=== PATIENT | female | born 1975 | race Caucasian/White ===

== ENCOUNTER 2016-09-02 08:17 | Outpatient (CLI) | payer MEDICAID ==
[2016-09-02 10:21] LABS: BASOPHILS % (AUTO) 0.4 %; EOSINOPHILS # (AUTO) 0.3 10^3/uL (0.0-0.7); HGB - HEMOGLOBIN 11.5 g/dL (12.0-16.0); LYMPHOCYTES # (AUTO) 2.1 10^3/uL (1.5-3.5); LYMPHOCYTES % (AUTO) 20.6 %; MEAN CORPUSCULAR HGB CONC 34.8 g/dL (32.0-36.0); MEAN PLATELET VOLUME 8.5 fL (7.9-10.8); MONOCYTES # (AUTO) 0.8 10^3/uL (0.0-1.0); MONOCYTES % (AUTO) 7.4 %; NEUTROPHILS # (AUTO) 7.2 10^3/uL (1.5-6.6); NEUTROPHILS % (AUTO) 68.6 %; RED BLOOD COUNT 3.71 10^6/uL (4.20-5.40); RED CELL DISTRIBUTION WIDTH 12.8 % (12.0-15.0); UNCORRECTED WHITE BLOOD COUNT 10.4 x10^3/uL; WHITE BLOOD COUNT 10.4 x10^3/uL (4.8-10.8)
[2016-09-02 10:31] LABS: ALBUMIN/GLOBULIN RATIO 1.1 (1.0-2.2); BILIRUBIN,TOTAL 0.5 mg/dL (0.2-1.0); CALCIUM 8.7 mg/dL (8.5-10.3); CREATININE 0.3 mg/dL (0.4-1.0); POTASSIUM 3.9 mmol/L (3.5-5.0); TOTAL PROTEIN 6.4 g/dL (6.7-8.2)
[2016-09-02 10:38] LABS: HEMOGLOBIN A1C 0.35 g/dL
[2016-09-02 11:01] LABS: FOLATE 20.19 ng/mL (5.90 - >24.8)
[2016-09-02 11:08] LABS: THYROID STIMULATING HORMONE 3.53 uIU/mL (0.34-5.60)
[2016-09-07 07:50] LABS: MISC SENDOUT TEST NAME PH LAB1033 HISTAMINE
== END 2016-09-02 08:18 | disposition home or self-care (01) ==
LOC: LAB.F 08:17 → LAB 08:18
PROVIDERS: ATTEND Nurse Practitioner Psychiatric/Mental Health
DX: F31.81 Bipolar II disorder (principal); E55.9 Vitamin D deficiency, unspecified; F41.1 Generalized anxiety disorder; E56.9 Vitamin deficiency, unspecified; F41.0 Panic disorder [episodic paroxysmal anxiety]; R53.83 Other fatigue
CPT/HCPCS: 36415; 80053; 81599; 82306; 82390; 82525; 82533; 82607; 82627; 82746; 83036; 83088; 83090; 83735; 84439; 84443; 84481; 84630; 85025; 86376; 86800

== ENCOUNTER 2016-11-14 11:17 | Outpatient (CLI) | payer MEDICAID ==
[2016-11-14 13:48] LABS: BILIRUBIN,TOTAL < 0.2 mg/dL (0.2-1.0); BUN - BLOOD UREA NITROGEN 8 mg/dL (6-20); CARBON DIOXIDE - CO2 20 mmol/L (21-32); CHLORIDE 104 mmol/L (101-111); CREATININE 0.4 mg/dL (0.4-1.0); GFR - MDRD 178 (>89); GLUCOSE 124 mg/dL (70-100); POTASSIUM 3.5 mmol/L (3.5-5.0); SODIUM 132 mmol/L (135-145); TOTAL PROTEIN 6.1 g/dL (6.7-8.2)
[2016-11-14 14:11] LABS: BASOPHILS % (AUTO) 0.3 %; EOSINOPHILS # (AUTO) 0.3 10^3/uL (0.0-0.7); EOSINOPHILS % (AUTO) 2.5 %; HCT - HEMATOCRIT 34.3 % (37.0-47.0); HGB - HEMOGLOBIN 11.8 g/dL (12.0-16.0); LYMPHOCYTES # (AUTO) 2.2 10^3/uL (1.5-3.5); LYMPHOCYTES % (AUTO) 17.2 %; MEAN CORPUSCULAR HGB CONC 34.4 g/dL (32.0-36.0); MEAN PLATELET VOLUME 8.1 fL (7.9-10.8); RED BLOOD COUNT 3.81 10^6/uL (4.20-5.40); RED CELL DISTRIBUTION WIDTH 12.9 % (12.0-15.0); UNCORRECTED WHITE BLOOD COUNT 12.5 x10^3/uL; WHITE BLOOD COUNT 12.5 x10^3/uL (4.8-10.8)
[2016-11-14 15:21] LABS: FOLATE > 49.60 ng/mL (5.90 - >24.8)
[2016-11-15 13:31] LABS: HOMOCYSTEINE 4.8 umol/L (<10.4)
[2016-11-17 14:02] LABS: TEST RESULT REPORT (())
[2016-11-18 19:22] LABS: TEST RESULT REPORT (())
== END 2016-11-14 11:18 | disposition home or self-care (01) ==
LOC: LAB 11:17
PROVIDERS: ATTEND Obstetrics & Gynecology
DX: O09.521 Supervision of elderly multigravida, first trimester (principal); F31.81 Bipolar II disorder; E56.9 Vitamin deficiency, unspecified; E55.9 Vitamin D deficiency, unspecified; R53.83 Other fatigue
CPT/HCPCS: 36415; 80053; 81599; 82306; 82542; 82607; 82746; 82950; 83088; 83090; 84439; 84481; 84482; 85025

== ENCOUNTER 2016-11-15 20:36 | Outpatient (CLI) | payer MEDICAID ==
[2016-11-15 21:55] LABS: BILIRUBIN,URINE NEGATIVE (NEGATIVE)
[2016-11-15 22:22] LABS: UR CULTURE IF IND NOT INDICATED; WBC,URINE 0-3 /HPF (0-5)
[2016-11-15 22:28] VITALS: BP 129/68
== END 2016-11-15 22:10 | disposition home or self-care (01) ==
LOC: OB 20:36 → WFO 20:36
PROVIDERS: ATTEND Obstetrics & Gynecology
DX: O99.89 Other specified diseases and conditions complicating pregnancy, childbirth and the puerperium (principal); R10.9 Unspecified abdominal pain; Z3A.29 29 weeks gestation of pregnancy
CPT/HCPCS: 81001; 87086; 99212

== ENCOUNTER 2017-01-24 12:05 | Emergency (ER) | payer MEDICAID ==
--- NOTE | 2017-01-24 13:55 | ED Physician Documentation ---
PD HPI HEADACHE - Stated complaint Stated Complaint: CL[place]ORD - Chief complaint Chief Complaint: Neuro - History obtained from History obtained from: Patient - History of Present Illness Timing - onset: How many weeks ago (several) Timing - onset during: Light activity Timing - duration: Weeks Timing - details: Gradual onset, Still present (worse as is out of pain meds she has had regularly), Waxing and waning Worst headache ever?: No: Worst headache ever? Location: Global Quality: Throbbing, Aching Associated symptoms: No: Fever, Stiff neck, Nausea, Vomiting, Weakness, Numbness , Syncope, Seizure, Eye pain, Vision changes, Other Improved by: Dark room Worsened by: Light, Noise, Moving Contributing factors: No: Anticoagulated, Hypertension (BP was mildly high during last month of .), Recent illness Similar symptoms before: No diagnosis (presumed migrainous.) Review of Systems Constitutional: denies: Fever, Chills Nose: denies: Rhinorrhea / runny nose, Congestion Throat: denies: Sore throat Cardiac: denies: Chest pain / pressure Respiratory: denies: Dyspnea, Cough, Hemoptysis, Wheezing, Reviewed and negative , Other GI: reports: Nausea : reports: Dysuria, Frequency Skin: denies: Rash, Lesions Musculoskeletal: denies: Neck pain, Back pain, Extremity swelling Neurologic: reports: Generalized weakness. denies: Focal weakness, Numbness, Difficulty speaking, Near syncope Endocrine: reports: Polydypsia Immunocompromised: denies: Immunocompromised PD PAST MEDICAL HISTORY - Past Medical History Psych: Depression - Past Surgical History Past Surgical History: Yes Ortho: Other - Present Medications Home Medications: Ambulatory Orders Medication Instructions Recorded Confirmed Doxylamine [Unisom] 25 mg PO HS 01/22/13 01/22/13 Sertraline [Zoloft] 100 mg PO DAILY 01/22/13 01/22/13 Dexamethasone [Decadron] 4 mg PO DAILY #5 tablet 01/24/17 oxyCODONE [Roxicodone] 5 mg PO Q4-6H PRN #30 tablet 01/24/17 - Allergies Allergies/Adverse Reactions: Allergies Allergy/AdvReac Type Severity Reaction Status Date / Time acetaminophen [From Vicodin] AdvReac Intermediate Nausea Verified 01/24/17 12:27 hydrocodone bitartrate * AdvReac Intermediate Nausea Verified 01/24/17 12:27 [From Vicodin] - Social History Does the pt smoke?: No Smoking Status: Never smoker Does the pt drink ETOH?: No Does the pt have substance abuse?: No - Immunizations Immunizations are current?: No Immunizations: TDAP >10years/unknown PD ED PE NORMAL - Vitals Vital signs reviewed: Yes - General General: Alert and oriented X 3, Well developed/nourished, Other (uncomfortable) - HEENT HEENT: Atraumatic, PERRL (light sensitive), Pharynx benign - Neck Neck: Supple, no meningeal sign, No adenopathy - Cardiac Cardiac: RRR, No murmur - Respiratory Respiratory: Clear bilaterally - Back Back: No CVA TTP - Derm Derm: Normal color, Warm and dry, No rash - Extremities Extremities: No tenderness to palpate, No edema, No calf tenderness / cord - Neuro Neuro: Alert and oriented X 3, orthotist or prosthetist 2-12 intact, No motor deficit, No sensory deficit, Normal speech, Other - Psych Psych: Normal mood, Normal affect Results - Vitals Vitals: Oxygen O2 Source Room air - Labs Labs: Laboratory Tests 01/24/17 01/24/17 01/24/17 13:30 15:25 15:25 WBC 10.9 H RBC 4.02 L Hgb 12.3 Hct 36.6 L MCV 91.0 MCH 30.6 MCHC 33.6 RDW 13.0 Plt Count 268 MPV 7.4 L Neut # 6.8 H Lymph # 2.8 [place] # 0.8 Eos # 0.4 Baso # 0.0 Absolute Nucleated RBC 0.00 Nucleated RBC % 0.0 ESR 46 H Urine Color YELLOW Urine Clarity CLEAR Urine pH 6.5 Ur Specific [place] <=1.005 Urine Protein NEGATIVE Urine Glucose (UA) NEGATIVE Urine Ketones NEGATIVE Urine Occult Blood SMALL H Urine Nitrite NEGATIVE Urine Bilirubin NEGATIVE Urine Urobilinogen 0.2 (NORMAL) Ur Leukocyte Esterase NEGATIVE Urine RBC 0-5 Urine WBC 0-3 Ur Squamous Epith Cells FEW Squamous Urine Bacteria None Seen Ur Microscopic Review INDICATED Urine Culture Comments NOT INDICATED PD MEDICAL DECISION MAKING - ED course Complexity details: reviewed results, re-evaluated patient (improved with pain meds and mostly meds for migraine cocktail. ), considered differential (seems vascular like migraine. Has some fluctuance of BP reading here and will give some pain meds to her due to pain. Also discussed the head CT scan. With gradual onset wax and wane for weeks, it does not seem eeding CT imaging here. ) , d/w patient Departure - Departure Disposition: 01 Home, Self Care Clinical Impression: Headache Qualifiers: Headache type: unspecified Headache chronicity pattern: acute headache Intractability: intractable Qualified Code(s): R51 - Headache Condition: Stable Record reviewed to determine appropriate education?: Yes Instructions: ED Cephalgia Unspecified Follow-Up: Ness Christine MD [Primary Care Provider] - Prescriptions: Dexamethasone [Decadron] 4 mg PO DAILY #5 tablet oxyCODONE [Roxicodone] 5 mg PO Q4-6H PRN #30 tablet PRN Reason: Headache Comments: Drink lots of fluids. Use Advil 2-3 times daily. Also add dexamethasone steroid daily for 5 more days. Oxycodone every 4-6 hours if needed for headache. Try to decrease the frequency of it as higher amounts of pain medicine can paradoxically increase headache 2. Follow-up with your primary care in the next 2-3 days if not improved. Discharge Date/Time: 01/24/17 17:55
[2017-01-24 14:38] LABS: BILIRUBIN,URINE NEGATIVE (NEGATIVE); PH,URINE 6.5 PH (5.0-7.5)
[2017-01-24 14:40] LABS: UA w/ MICROSCOPIC CHARGE YES
[2017-01-24] MEDS ORDERED: SODIUM CHLORIDE 0.9% 1,000 ML IV ONE (14:42)
[2017-01-24] MEDS ORDERED: METOCLOPRAMIDE 10 MG/2 ML VIAL IVP STA (14:42)
[2017-01-24] MEDS ORDERED: KETOROLAC 60 MG/2 ML VIAL IVP STA (14:42)
[2017-01-24] MEDS ORDERED: diphenhydrAMINE INJ 50 MG/ML VIAL IVP STA (14:42)
[2017-01-24] MEDS ORDERED: DEXAMETHASONE 10 MG/ML VIAL IVP STA (14:42)
[2017-01-24] MEDS ORDERED: HYDROmorphone 1 MG/ML CARPUJECT IVP STA ×2 (14:43→16:47)
[2017-01-24 14:52] LABS: WBC,URINE 0-3 /HPF (0-5)
[2017-01-24 14:53] LABS: UR CULTURE IF IND NOT INDICATED
[2017-01-24] MEDS ORDERED: METOCLOPRAMIDE 10 MG/2 ML VIAL ONE (15:10)
[2017-01-24] MEDS ORDERED: diphenhydrAMINE INJ 50 MG/ML VIAL ONE (15:11)
[2017-01-24] MEDS ORDERED: DEXAMETHASONE 10 MG/ML VIAL ONE (15:11)
[2017-01-24] MEDS ORDERED: HYDROmorphone 1 MG/ML CARPUJECT ONE ×2 (15:11→17:16)
[2017-01-24] MEDS ORDERED: SODIUM CHLORIDE FLUSH 0.9% 10 ML SYRINGE IVP ONE ×2 (15:12→17:16)
[2017-01-24] MEDS ORDERED: KETOROLAC 30 MG/ML VIAL ONE (15:12)
[2017-01-24 15:45] LABS: BASOPHILS % (AUTO) 0.3 %; EOSINOPHILS # (AUTO) 0.4 10^3/uL (0.0-0.7); EOSINOPHILS % (AUTO) 3.8 %; HCT - HEMATOCRIT 36.6 % (37.0-47.0); HGB - HEMOGLOBIN 12.3 g/dL (12.0-16.0); LYMPHOCYTES # (AUTO) 2.8 10^3/uL (1.5-3.5); LYMPHOCYTES % (AUTO) 25.9 %; MEAN CORPUSCULAR HEMOGLOBIN 30.6 pg (27.0-31.0); MEAN CORPUSCULAR HGB CONC 33.6 g/dL (32.0-36.0); MEAN PLATELET VOLUME 7.4 fL (7.9-10.8); MONOCYTES # (AUTO) 0.8 10^3/uL (0.0-1.0); MONOCYTES % (AUTO) 7.6 %; NEUTROPHILS # (AUTO) 6.8 10^3/uL (1.5-6.6); NEUTROPHILS % (AUTO) 62.4 %; RED BLOOD COUNT 4.02 10^6/uL (4.20-5.40); UNCORRECTED WHITE BLOOD COUNT 10.9 x10^3/uL; WHITE BLOOD COUNT 10.9 x10^3/uL (4.8-10.8)
[2017-01-24 17:17] VITALS: BP 130/82
== END 2017-01-24 17:55 | disposition home or self-care (01) ==
LOC: ED 12:05
DX: R51 Headache (principal)
CPT/HCPCS: 36415; 81001; 85025; 85651; 96374; 96375; 96376; 99284; J1170; 81003; 87086

== ENCOUNTER 2017-02-06 16:55 | Emergency (ER) | payer MEDICAID ==
[2017-02-06 18:22] LABS: BASOPHILS # (AUTO) 0.1 10^3/uL (0.0-0.1); BASOPHILS % (AUTO) 0.7 %; EOSINOPHILS # (AUTO) 0.5 10^3/uL (0.0-0.7); EOSINOPHILS % (AUTO) 4.6 %; HCT - HEMATOCRIT 41.4 % (37.0-47.0); HGB - HEMOGLOBIN 13.8 g/dL (12.0-16.0); LYMPHOCYTES # (AUTO) 3.3 10^3/uL (1.5-3.5); LYMPHOCYTES % (AUTO) 32.5 %; MEAN CORPUSCULAR HEMOGLOBIN 30.4 pg (27.0-31.0); MEAN CORPUSCULAR HGB CONC 33.4 g/dL (32.0-36.0); MEAN CORPUSCULAR VOLUME 91.1 fL (81.0-99.0); MEAN PLATELET VOLUME 7.4 fL (7.9-10.8); MONOCYTES # (AUTO) 0.8 10^3/uL (0.0-1.0); MONOCYTES % (AUTO) 8.1 %; NEUTROPHILS # (AUTO) 5.5 10^3/uL (1.5-6.6); NEUTROPHILS % (AUTO) 54.1 %; RED BLOOD COUNT 4.55 10^6/uL (4.20-5.40); RED CELL DISTRIBUTION WIDTH 12.7 % (12.0-15.0); UNCORRECTED WHITE BLOOD COUNT 10.3 x10^3/uL; WHITE BLOOD COUNT 10.3 x10^3/uL (4.8-10.8)
[2017-02-06 18:32] LABS: ALBUMIN/GLOBULIN RATIO 1.4 (1.0-2.2); BILIRUBIN,TOTAL 0.5 mg/dL (0.2-1.0); CALCIUM 9.6 mg/dL (8.5-10.3); CREATININE 0.7 mg/dL (0.4-1.0); POTASSIUM 3.9 mmol/L (3.5-5.0); TOTAL PROTEIN 7.2 g/dL (6.7-8.2)
--- NOTE | 2017-02-06 19:44 | ED Physician Documentation ---
PD HPI ABD PAIN - Stated complaint Stated Complaint: FEMALE - Chief complaint Chief Complaint: Abd Pain - History obtained from History obtained from: Patient - History of Present Illness Timing - onset: How many days ago (she has had pain in umbilical area for days and feels fullness/distension of abdomen, which is new for her.) Timing - details: Gradual onset, Waxing and waning Quality: Cramping, Fullness/distended Location: Periumbilical Radiation: No: Left flank, Right flank Worsened by: Eating, Palpation Associated symptoms: Nausea. No: Fever, Vomiting, Diarrhea, Dysuria Recently seen: Other (recently post with headache. Had umbilical hernia during without tenderness. It is feeling tender the past week or so.) Review of Systems Constitutional: denies: Fever, Chills Nose: denies: Rhinorrhea / runny nose, Congestion Throat: denies: Sore throat Respiratory: denies: Cough GI: reports: Abdominal Pain, Abdominal Swelling, Nausea. denies: Vomiting, Constipation, Diarrhea : denies: Dysuria, Frequency Neurologic: reports: Headache. denies: Focal weakness, Numbness, Altered mental status, Head injury PD PAST MEDICAL HISTORY - Past Medical History Cardiovascular: None Respiratory: None Neuro: None Endocrine/Autoimmune: None Psych: Depression - Past Surgical History Past Surgical History: Yes Ortho: Other - Present Medications Home Medications: Ambulatory Orders Medication Instructions Recorded Confirmed Sertraline [Zoloft] 100 mg PO DAILY 01/22/13 01/22/13 Dexamethasone [Decadron] 4 mg PO DAILY #5 tablet 02/06/17 Naproxen 375 mg PO BID #20 tablet 02/06/17 Oxycodone HCl/Acetaminophen 1 each PO Q6H PRN #15 tablet 02/06/17 [Percocet 5-325 mg Tablet] lamoTRIgine [LaMICtal] 100 mg PO DAILY 02/06/17 02/06/17 - Allergies Allergies/Adverse Reactions: Allergies Allergy/AdvReac Type Severity Reaction Status Date / Time acetaminophen [From Vicodin] AdvReac Intermediate Nausea Verified 01/24/17 12:27 hydrocodone bitartrate * AdvReac Intermediate Nausea Verified 01/24/17 12:27 [From Vicodin] - Social History Does the pt smoke?: No Smoking Status: Never smoker Does the pt drink ETOH?: No Does the pt have substance abuse?: No - Immunizations Immunizations are current?: No Immunizations: TDAP >10years/unknown PD ED PE NORMAL - Vitals Vital signs reviewed: Yes - General General: Alert and oriented X 3, No acute distress, Well developed/nourished - Neck Neck: Supple, no meningeal sign, No adenopathy - Cardiac Cardiac: RRR, No murmur - Respiratory Respiratory: Clear bilaterally - Abdomen Abdomen: Normal bowel sounds, Soft, No organomegaly, Other (mild distension with hyperactive BS. Not firm and no percussion tender. ) - Female Female : Deferred - Rectal Rectal: Deferred - Back Back: No CVA TTP - Derm Derm: Normal color Results - Vitals Vitals: Vital Signs - 24 hr 02/06/17 02/06/17 02/06/17 17:01 20:50 23:06 Temperature 36.7 C Heart Rate 95 76 73 Respiratory 16 14 17 Rate Blood Pressure 126/85 H 120/64 120/76 O2 Saturation 98 96 99 Oxygen O2 Source Room air - Labs Labs: Laboratory Tests 02/06/17 02/06/17 02/06/17 18:12 18:12 19:36 WBC 10.3 RBC 4.55 Hgb 13.8 Hct 41.4 MCV 91.1 MCH 30.4 MCHC 33.4 RDW 12.7 Plt Count 278 MPV 7.4 L Neut # 5.5 Lymph # 3.3 [place] # 0.8 Eos # 0.5 Baso # 0.1 Absolute Nucleated RBC 0.01 Nucleated RBC % 0.0 Sodium 135 Potassium 3.9 Chloride 100 L Carbon Dioxide 24 Anion Gap 11.0 BUN 16 Creatinine 0.7 Estimated GFR (MDRD) 93 Glucose 114 H Calcium 9.6 Total Bilirubin 0.5 AST 24 ALT 24 Alkaline Phosphatase 66 Total Protein 7.2 Albumin 4.2 Globulin 3.0 Albumin/Globulin Ratio 1.4 Lipase 25 Urine Color YELLOW Urine Clarity CLEAR Urine pH 6.0 Ur Specific [place] >=1.030 H Urine Protein NEGATIVE Urine Glucose (UA) NEGATIVE Urine Ketones NEGATIVE Urine Occult Blood TRACE-LYSE Urine Nitrite NEGATIVE Urine Bilirubin NEGATIVE Urine Urobilinogen 0.2 (NORMAL) Ur Leukocyte Esterase NEGATIVE Ur Microscopic Review NOT INDICATED Urine Culture Comments INDICATED - Rads (name of study) abd CT Radiology: Prelim report reviewed (fat containing umbilical hernia. No obsctruction. ) PD MEDICAL DECISION MAKING - ED course Complexity details: reviewed results, considered differential, d/w patient, d/w client insights consultant (Rey) Departure - Departure Disposition: 01 Home, Self Care Clinical Impression: Abdominal pain Qualifiers: Abdominal location: periumbilical Qualified Code(s): R10.33 - Periumbilical pain Umbilical hernia Qualifiers: Obstruction and gangrene presence: without obstruction or gangrene Qualified Code(s): K42.9 - Umbilical hernia without obstruction or gangrene Headache Qualifiers: Headache type: unspecified Headache chronicity pattern: acute headache Intractability: intractable Qualified Code(s): R51 - Headache Condition: Stable Record reviewed to determine appropriate education?: Yes Instructions: Hernia, ED Hernia Inguinal Follow-Up: Orlando Atkins MD [Provider Admit Priv/Credential] - Ness Christine MD [Primary Care Provider] - Prescriptions: Dexamethasone [Decadron] 4 mg PO DAILY #5 tablet Naproxen 375 mg PO BID #20 tablet Oxycodone HCl/Acetaminophen [Percocet 5-325 mg Tablet] 1 each PO Q6H PRN #15 tablet PRN Reason: Pain Comments: Stay well hydrated. Naproxen twice daily for a week. ALso Decadron daily for 5 days for inflammation and to help with headache too. Take dose Miralax daily to keep stool soft to help with the hernia. Add Tylenol or Percocet for pains as needed. Call surgery office for appt to discuss treatment options on the hernia. The information sheet refers to Inguinal Hernias but applies to Umbilical Hernias as well generally. Discharge Date/Time: 02/06/17 23:07
[2017-02-06 19:49] LABS: BILIRUBIN,URINE NEGATIVE (NEGATIVE)
[2017-02-06 19:52] LABS: UA CHARGE (STRIP ONLY) YES
[2017-02-06] MEDS ORDERED: METOCLOPRAMIDE 10 MG/2 ML VIAL IVP STA ×2 (19:58→22:39)
[2017-02-06] MEDS ORDERED: SODIUM CHLORIDE 0.9% 1,000 ML IV ONE (19:58)
[2017-02-06] MEDS ORDERED: KETOROLAC 60 MG/2 ML VIAL IVP STA (19:58)
[2017-02-06] MEDS ORDERED: HYDROmorphone 1 MG/ML CARPUJECT IVP STA ×2 (19:59→20:57)
[2017-02-06] MEDS ORDERED: KETOROLAC 30 MG/ML VIAL ONE (20:07)
[2017-02-06] MEDS ORDERED: HYDROmorphone 1 MG/ML SYRINGE ONE ×2 (20:07→21:12)
[2017-02-06] MEDS ORDERED: METOCLOPRAMIDE 10 MG/2 ML VIAL ONE ×3 (20:07→22:51)
[2017-02-06] MEDS ORDERED: SODIUM CHLORIDE FLUSH 0.9% 10 ML SYRINGE IVP ONE (20:08)
[2017-02-06] MEDS ORDERED: IOPAMIDOL-300 100 ML VIAL ONE (20:21)
[2017-02-06 20:28] LABS: UR CULTURE IF IND INDICATED
[2017-02-06] MEDS ORDERED: IOPAMIDOL-300 100 ML VIAL IVP ONE (20:47)
--- NOTE | 2017-02-06 21:17 | CT Preliminary Report ---
Exam: CT Abdomen/Pelvis W/ IMPRESSION: 1. Fat-containing umbilical hernia. 2. No other significant acute abnormality demonstrated. [facility] SITE ID: [id number]
--- NOTE | 2017-02-06 21:19 | CT Report ---
EXAM: CT ABDOMEN AND PELVIS EXAM DATE: 02/06/2017 08:36 PM. CLINICAL HISTORY: Mid abd pain and distension for 2 days. COMPARISONS: None. TECHNIQUE: Routine helical CT imaging was performed through the abdomen and pelvis. IV contrast: 100 cc Isovue-300 IV. Enteric contrast: No. Reconstructions: Coronal and sagittal. In accordance with CT protocol optimization, one or more of the following dose reduction techniques w ere utilized for this exam: automated exposure control, adjustment of mA and/or KV based on patient s ize, or use of iterative reconstructive technique. FINDINGS: Lung Bases: Unremarkable. Liver: Normal. No masses. Gallbladder/Bile Ducts: Unremarkable. Spleen: Normal. Pancreas: Normal. Adrenal Glands: Normal. Kidneys: Normal. No masses or hydronephrosis. Peritoneal Cavity/Bowel: There is a fat-containing umbilical hernia. The neck of the hernia measures 0.7 x 1.5 cm. No dilated bowel or findings of mechanical bowel obstruction. The appendix appears norm al. There is no abnormal fluid or gas collection. Pelvic Organs: Uterus is anteverted. There is heterogeneous enhancement of the uterus. Vasculature: No aneurysms or other significant abnormality. Bones: No significant abnormality. Other: None. IMPRESSION: 1. Fat-containing umbilical hernia. 2. No other significant acute abnormality demonstrated. [facility] Referring Provider Line: [phone] SITE ID: [id number]
[2017-02-06] MEDS ORDERED: oxyCODONE/ACET 5/325 Prepack 4 PO STA (22:09)
[2017-02-06] MEDS ORDERED: DEXAMETHASONE 10 MG/ML VIAL IVP STA (22:09)
[2017-02-06] MEDS ORDERED: oxyCODONE/ACET 5/325 Prepack 4 PO ONE (22:26)
[2017-02-06] MEDS ORDERED: DEXAMETHASONE 10 MG/ML VIAL ONE (22:26)
[2017-02-06 23:07] VITALS: BP 120/76
== END 2017-02-06 23:07 | disposition home or self-care (01) ==
LOC: ED 16:55
DX: K42.9 Umbilical hernia without obstruction or gangrene (principal); R51 Headache
CPT/HCPCS: 36415; 74177; 80053; 81003; 83690; 85025; 87086; 96361; 96374; 96375; 96376; 99283; 99284; J1170; Q9967; 81001

== ENCOUNTER 2019-11-10 13:12 | Outpatient (CLI) | payer MEDICAID | END 2019-11-10 13:13 | disposition home or self-care (01) | LOC: LAB.S 13:12 | PROVIDERS: ATTEND Family Medicine | DX: M79.10 Myalgia, unspecified site (principal); Z20.828 Contact with and (suspected) exposure to other viral communicable diseases ==

== ENCOUNTER 2020-03-21 12:03 | Outpatient (CLI) | payer MEDICAID ==
[2020-03-24 03:27] LABS: PROGESTERONE 8.5 ng/mL
== END 2020-03-21 12:04 | disposition home or self-care (01) ==
LOC: LAB.S 12:03
PROVIDERS: ATTEND Naturopath
DX: N92.1 Excessive and frequent menstruation with irregular cycle (principal); R19.7 Diarrhea, unspecified; R10.30 Lower abdominal pain, unspecified; R45.1 Restlessness and agitation
CPT/HCPCS: 36415; 81599; 82670; 82784; 83001; 83516; 84144

== ENCOUNTER 2020-09-29 12:33 | Outpatient (CLI) | payer MEDICAID ==
[2020-09-29 15:27] LABS: BASOPHILS % (AUTO) 0.4 %; EOSINOPHILS # (AUTO) 0.3 10^3/uL (0.0-0.7); EOSINOPHILS % (AUTO) 3.5 %; HCT - HEMATOCRIT 38.5 % (37.0-47.0); HGB - HEMOGLOBIN 12.6 g/dL (12.0-16.0); LYMPHOCYTES # (AUTO) 2.8 10^3/uL (1.5-3.5); LYMPHOCYTES % (AUTO) 30.4 %; MEAN CORPUSCULAR HEMOGLOBIN 30.4 pg (27.0-31.0); MEAN CORPUSCULAR HGB CONC 32.7 g/dL (32.0-36.0); MEAN CORPUSCULAR VOLUME 92.8 fL (81.0-99.0); MEAN PLATELET VOLUME 9.9 fL (7.9-10.8); MONOCYTES # (AUTO) 0.8 10^3/uL (0.0-1.0); MONOCYTES % (AUTO) 8.6 %; NEUTROPHILS # (AUTO) 5.3 10^3/uL (1.5-6.6); NEUTROPHILS % (AUTO) 56.8 %; PLT - PLATELET COUNT 249 10^3/uL (130-450); RED BLOOD COUNT 4.15 10^6/uL (4.20-5.40); RED CELL DISTRIBUTION WIDTH 11.9 % (12.0-15.0); WHITE BLOOD COUNT 9.3 x10^3/uL (4.8-10.8)
== END 2020-09-29 12:34 | disposition home or self-care (01) ==
LOC: LAB.S 12:33
PROVIDERS: ATTEND Naturopath
DX: N92.5 Other specified irregular menstruation (principal); R61 Generalized hyperhidrosis; R53.83 Other fatigue
CPT/HCPCS: 36415; 82670; 83001; 85025

== ENCOUNTER 2020-10-31 08:00 | Outpatient (CLI) | payer MEDICAID ==
--- NOTE | 2020-10-31 14:23 | XRAY Report ---
PROCEDURE: Thoracic Spine 3 View INDICATIONS: THORACIC BACK PAIN AND INJURY TECHNIQUE: 3 views of the thoracic spine were acquired. COMPARISON: None. FINDINGS: Bones: No fractures or dislocations. No suspicious bony lesions. 12 pairs of ribs are noted, and a ppear intact where visualized. Soft tissues: No paravertebral stripe thickening. IMPRESSION: No evidence acute bony abnormality of the thoracic spine. Reviewed by: Deondre Brambila MD on 10/31/2020 1:21 PM [facility] Approved by: Deondre Brambila MD on 10/31/2020 1:21 PM [facility] Station ID: [id number]
== END 2020-10-31 23:59 | disposition home or self-care (01) ==
LOC: DI.S 08:00
PROVIDERS: ATTEND Emergency Medicine
DX: M54.6 Pain in thoracic spine (principal)

== ENCOUNTER 2021-04-26 15:45 | Outpatient (CLI) | payer MEDICAID | END 2021-04-26 23:59 | disposition home or self-care (01) | LOC: LAB.S 15:45 | PROVIDERS: ATTEND Emergency Medicine | DX: J06.9 Acute upper respiratory infection, unspecified (principal); Z20.822 Contact with and (suspected) exposure to COVID-19 ==

== ENCOUNTER 2021-09-22 09:10 | Outpatient (CLI) | payer MEDICAID | END 2021-09-22 09:11 | disposition home or self-care (01) | LOC: LAB.S 09:10 | PROVIDERS: ATTEND Naturopath | DX: R61 Generalized hyperhidrosis (principal); R53.83 Other fatigue; R45.1 Restlessness and agitation; N92.5 Other specified irregular menstruation; G47.00 Insomnia, unspecified | CPT/HCPCS: 36415; 82670; 83001 ==

== ENCOUNTER 2021-10-11 12:14 | Outpatient (CLI) | payer MEDICAID | END 2021-10-11 12:15 | disposition home or self-care (01) | LOC: LAB.S 12:14 | PROVIDERS: ATTEND Naturopath | DX: R61 Generalized hyperhidrosis (principal); R53.83 Other fatigue; R45.1 Restlessness and agitation; N92.5 Other specified irregular menstruation; G47.00 Insomnia, unspecified | CPT/HCPCS: 36415; 84144 ==

== ENCOUNTER 2022-02-02 14:31 | Emergency (ER) | payer MEDICAID ==
[2022-02-02 15:08] LABS: BASOPHILS # (AUTO) 0.1 10^3/uL (0.0-0.1); BASOPHILS % (AUTO) 0.4 %; EOSINOPHILS # (AUTO) 0.2 10^3/uL (0.0-0.7); HCT - HEMATOCRIT 40.6 % (37.0-47.0); HGB - HEMOGLOBIN 13.8 g/dL (12.0-16.0); LYMPHOCYTES # (AUTO) 2.9 10^3/uL (1.5-3.5); LYMPHOCYTES % (AUTO) 25.5 %; MEAN CORPUSCULAR HEMOGLOBIN 31.1 pg (27.0-31.0); MEAN CORPUSCULAR VOLUME 91.4 fL (81.0-99.0); MEAN PLATELET VOLUME 8.9 fL (7.9-10.8); MONOCYTES % (AUTO) 8.9 %; NEUTROPHILS # (AUTO) 7.1 10^3/uL (1.5-6.6); NEUTROPHILS % (AUTO) 63.1 %; PLT - PLATELET COUNT 274 10^3/uL (130-450); RED BLOOD COUNT 4.44 10^6/uL (4.20-5.40); RED CELL DISTRIBUTION WIDTH 12.1 % (12.0-15.0); WHITE BLOOD COUNT 11.2 x10^3/uL (4.8-10.8)
[2022-02-02 15:24] LABS: ALBUMIN 4.2 g/dL (3.2-5.5); ALBUMIN/GLOBULIN RATIO 1.5 (1.0-2.2); BILIRUBIN,TOTAL 0.5 mg/dL (0.2-1.0); CALCIUM 9.4 mg/dL (8.5-10.3); CREATININE 0.6 mg/dL (0.4-1.0)
--- NOTE | 2022-02-02 15:31 | XRAY Report ---
PROCEDURE: Chest 1 View X-Ray INDICATIONS: Chest pain TECHNIQUE: One view of the chest was acquired. COMPARISON: None FINDINGS: Surgical changes and devices: None. Lungs and pleura: No pleural effusions or pneumothorax. Lungs are clear. Mediastinum: Mediastinal contours appear normal. Heart size is normal. Bones and chest wall: No suspicious bony lesions. Overlying soft tissues appear unremarkable. IMPRESSION: No acute pulmonary process. Reviewed by: Elizabeth Haley MD on 02/02/2022 3:30 PM PDT Approved by: Elizabeth Haley MD on 02/02/2022 3:30 PM PDT Station ID: [id number]
--- NOTE | 2022-02-02 16:40 | ED Physician Documentation ---
PD HPI CHEST PAIN - Stated complaint Stated Complaint: TROUBLE BREATHING - Chief complaint Chief Complaint: Cardiac - History obtained from History obtained from: Patient - Additional information Additional information: She was having acupuncture session where he was working on her chest and right shoulder. A little bit later developed an electric shocklike pain from the left part of the sternum radiating up to the left jaw. It is much better albeit not quite gone now. It was severe for about an hour. No recent travel, pedal edema or calf pain. Review of Systems Constitutional: denies: Fever, Chills Cardiac: denies: Palpitations Respiratory: denies: Dyspnea, Cough PD PAST MEDICAL HISTORY - Past Medical History Cardiovascular: None Respiratory: None Endocrine/Autoimmune: None GI: GERD : None HEENT: Chronic vision loss Psych: Bipolar disorder, Depression, Anxiety, Panic attacks, Claustrophobia Musculoskeletal: Chronic back pain Derm: None - Past Surgical History Past Surgical History: Yes General: Other Ortho: Other Derm: Other - Present Medications Home Medications: Ambulatory Orders Medication Instructions Recorded Confirmed Sertraline [Zoloft] 100 mg PO DAILY 01/22/13 03/06/17 Oxycodone HCl/Acetaminophen 1 each PO Q6H PRN #15 tablet 02/06/17 03/06/17 [Percocet 5-325 mg Tablet] lamoTRIgine [LaMICtal] 100 mg PO DAILY 02/06/17 03/06/17 EPINEPHrine [Epipen 2-Trell] 0.3 mg IJ ONCE PRN #1 unit 03/06/17 dexAMETHasone [Decadron] 4 mg PO DAILY #4 tablet 03/06/17 - Allergies Allergies/Adverse Reactions: Allergies Allergy/AdvReac Type Severity Reaction Status Date / Time latex Allergy Rash Verified 02/02/22 14:50 hydrocodone AdvReac Nausea Verified 02/02/22 14:50 - Social History Does the pt smoke?: No Smoking Status: Never smoker Does the pt drink ETOH?: No Does the pt have substance abuse?: No - Immunizations Immunizations are current?: No Immunizations: TDAP >10years/unknown PD ED PE NORMAL - Vitals Vital signs reviewed: Yes - General General: Alert and oriented X 3, No acute distress - Cardiac Cardiac: RRR, No murmur - Respiratory Respiratory: No respiratory distress, Clear bilaterally - Abdomen Abdomen: Non tender - Back Back: No CVA TTP, No spinal TTP - Derm Derm: Normal color, Warm and dry - Extremities Extremities: No edema, No calf tenderness / cord - Neuro Neuro: Alert and oriented X 3, Normal speech Results - Vitals Vitals: Vital Signs - 24 hr 02/02/22 02/02/22 14:46 16:45 Temperature 36.5 C 36.4 C L Heart Rate 70 66 Respiratory 16 17 Rate Blood Pressure 121/95 H 128/77 O2 Saturation 99 99 Oxygen O2 Source Room air - EKG (time done) 1449 Rate: Rate (enter#) (67) Rhythm: NSR [place]: Normal Intervals: Normal [place] QRS: Normal Ischemia: Normal ST segments Computer interpretation: Agree with computer - Labs Labs: Laboratory Tests 02/02/22 02/02/22 02/02/22 15:03 15:03 15:03 WBC 11.2 H RBC 4.44 Hgb 13.8 Hct 40.6 MCV 91.4 MCH 31.1 H MCHC 34.0 RDW 12.1 Plt Count 274 MPV 8.9 Neut # (Auto) 7.1 H Lymph # (Auto) 2.9 [place] # (Auto) 1.0 Eos # (Auto) 0.2 Baso # (Auto) 0.1 Absolute Nucleated RBC 0.00 Nucleated RBC % 0.0 Sodium 136 Potassium 4.0 Chloride 104 Carbon Dioxide 26 Anion Gap 6.0 BUN 11 Creatinine 0.6 Estimated GFR (MDRD) 109 Glucose 87 Calcium 9.4 Total Bilirubin 0.5 AST 18 ALT 18 Alkaline Phosphatase 42 Troponin I High Sens 3.1 Total Protein 7.0 Albumin 4.2 Globulin 2.8 Albumin/Globulin Ratio 1.5 Lipase 37 - Rads (name of study) chest 1v cxr Radiology: EMP read contemporaneously PD MEDICAL DECISION MAKING - ED course ED course: 46-year-old woman with electric shocklike very atypical chest pain while having acupuncture, much better here with negative work-up and no evidence of pneumothorax. Prior to discharge she developed tingling in her heart and a repeat EKG and exam were done without changes. Departure - Departure Disposition: Home, Self Care Clinical Impression: Chest pain Condition: Good Record reviewed to determine appropriate education?: Yes Instructions: ED Chest Pain Atypical Unkn Cause Comments: You are seen today for atypical chest pain happening after acupuncture. The work-up was negative with normal EKG, no evidence of pneumothorax, and normal heart work-up. Return for new or worsening symptoms. Follow-up with your primary care physician, next available appointment. Discharge Date/Time: 02/02/22 16:58
[2022-02-02 16:47] VITALS: BP 128/77
== END 2022-02-02 16:58 | disposition home or self-care (01) ==
LOC: ED 14:31
DX: R07.89 Other chest pain (principal); R68.84 Jaw pain
CPT/HCPCS: 36415; 80053; 83690; 84484; 85025; 93005; 99284

== ENCOUNTER 2024-01-19 12:46 | Emergency (ER) | payer MEDICAID ==
[2024-01-19 13:05] VITALS: O2SAT 98
--- NOTE | 2024-01-19 13:25 | ED Physician Documentation ---
PD HPI UPPER EXT INJURY - Stated complaint Stated Complaint: LT ARM PX - Chief complaint Chief Complaint: Ext Problem - Additonal information Additional information: 48-year-old female presents emergency department for left upper extremity pain. Patient says that she started noticing pain in her left hand yesterday that is been no trauma or fall and she feels it radiating up to her shoulder. She says that she hurt her shoulder about 2 months ago while on a slip and slide but she says this does not entirely feel similar to the pain that she has been experiencing. She describes it as a dull achy pain. Says that she has history of blood clot in her 20s while she was on control but does remember what kind. No recent fevers or chills no nausea or vomiting. PD PAST MEDICAL HISTORY - Past Medical History Past Medical History: Yes Cardiovascular: None Respiratory: None Endocrine/Autoimmune: None GI: GERD : None HEENT: Chronic vision loss Psych: Bipolar disorder, Depression, Anxiety, Panic attacks, Claustrophobia Musculoskeletal: Chronic back pain Derm: None - Past Surgical History Past Surgical History: Yes General: Other Ortho: Other Derm: Other - Present Medications Home Medications: Ambulatory Orders Medication Instructions Recorded Confirmed Sertraline [Zoloft] 100 mg PO DAILY 01/22/13 03/06/17 lamoTRIgine [LaMICtal] 100 mg PO DAILY 02/06/17 03/06/17 EPINEPHrine [Epipen 2-Trell] 0.3 mg IJ ONCE PRN #1 unit 03/06/17 Cyclobenzaprine [Flexeril] 10 mg PO TID PRN 4 Days #12 tab 01/19/24 - Allergies Allergies/Adverse Reactions: Allergies Allergy/AdvReac Type Severity Reaction Status Date / Time latex Allergy Rash Verified 01/19/24 12:57 hydrocodone AdvReac Nausea Verified 01/19/24 12:57 - Social History Does the pt smoke?: No Smoking Status: Never smoker Does the pt drink ETOH?: No Does the pt have substance abuse?: No - Immunizations Immunizations are current?: No Immunizations: TDAP >10years/unknown PD ED PE NORMAL - Vitals Vital signs reviewed: Yes - General General: Alert and oriented X 3, No acute distress, Well developed/nourished - HEENT HEENT: Atraumatic, PERRL - Derm Derm: Normal color, Warm and dry, No rash - Extremities Extremities: No deformity, No tenderness to palpate, Normal ROM s pain, No edema, Other (LUE: no focal tenderness with palpation, full ROM, strong radial pulse, CMS intact, no swelling/edema) - Psych Psych: Other (extremely anxious) PD ED PE EXPANDED - Neuro Neuro: Alert and Oriented X 3, Normal motor, Normal Sensation, Normal Speech, Normal reflexes, CNII-XII intact, PERRL, Cerebellar nl, Normal gait, Normal finger nose, Normal speech. No: Weakness, Nystagmus, Aphasia Results - Vitals Vitals: Vital Signs - 24 hr 01/19/24 01/19/24 01/19/24 12:57 16:11 16:38 Temperature 36.6 C 36.8 C Heart Rate 98 70 84 Respiratory 14 18 Rate Blood Pressure 160/88 H 134/71 H 135/87 H O2 Saturation 98 98 98 Oxygen O2 Source Room air - Rads (name of study) LUE US Relevant Findings:: Final report received, EMP independent interpretation of test, Other (No evidence of DVT or SVT of left upper extremity) PD Medical Decision Making - ED course ED course: 48-year-old female presents emergency department for left upper extremity pain. Patient reports that it starts in her wrist and it radiates up to her left shoulder. She denies any chest pain or shortness of breath no nausea or vomiting. Patient says that she is also worried because she has had a tooth implant before and she is worried that she may be going septic. She denies any oral pain no dental pain no difficulties eating or chewing no fevers or chills) the patient that her left upper extremity pain is likely not related to her dental implant. A venous duplex is complete for further evaluation and there is no SVT or DVT that was visualized on the ultrasound. She was given a Toradol shot in the emergency department which she reports did help minimally but she still endorses and left upper extremity discomfort. When I offered her gabapentin she says that gabapentin normally does not work for her but she is willing to take some Flexeril. Prescription of Flexeril was sent to her preferred pharmacy she is completely neurologically intact she is also worried that she may be having a stroke NIH score of 0. Patient also reports that she did have a left upper shoulder injury that happened about 2 months ago so this could be related to nerve entrapment syndrome of the left upper extremity. At this point in time I do not believe that any further emergent workup is indicated she is told to follow-up with her primary care provider for further evaluation and workup but I do not believe that she is experiencing any limb threatening or life-threatening illnesses with this left upper extremity pain. Return precautions given all questions answered patient is safe for discharge at this time. 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 You could have a possible entrapped nerve in your left upper extremity we could have simply slept on your left arm funny causing some lingering pain. We gave you a Toradol shot here in the emergency department and sent a prescription of Flexeril to preferred pharmacy on file. Please follow-up with your primary care provider for further evaluation and workup. Please come back to the ER if you start to develop any chest pain, shortness of breath, nausea, vomitting, fevers, or chills. Forms: PCP List Discharge Date/Time: 01/19/24 16:38
[2024-01-19] MEDS: KETOROLAC 30 MG/ML VIAL IM STA (14:42)
--- NOTE | 2024-01-19 16:24 | Ultrasound Report ---
PROCEDURE: Duplex Ext Veins Left INDICATIONS: LUE pain, hx of blood clot TECHNIQUE: Real-time imaging, as well as color and pulse Doppler interrogation, was performed of the left upper extremity deep veins from the inferior neck to the antecubital fossa. COMPARISON: None. FINDINGS: The internal jugular vein, visualized portions of the subclavian vein, axillary, and brach ial veins are free of intraluminal thrombus. Where physically possible, the veins are normally compr essible. Color and pulse Doppler demonstrate normal intraluminal flow, with expected phasicity and p ulsatility. Additional scanning of the cephalic and basilic veins of the superficial system demonstr ate normal compressibility, without thrombus. IMPRESSION: No evidence of DVT or SVT, left upper extremity. Reviewed by: Deondre Brambila MD on 01/19/2024 4:22 PM PDT Approved by: Deondre Brambila MD on 01/19/2024 4:22 PM PDT Station ID: [id number]
[2024-01-19] MEDS: CYCLOBENZAPRINE 10 MG TABLET PO STA (16:32)
[2024-01-19 16:45] VITALS: BP 135/87
== END 2024-01-19 16:38 | disposition home or self-care (01) ==
LOC: ED 12:46
DX: G58.8 Other specified mononeuropathies (principal)
CPT/HCPCS: 93971; 96372; 99284; A9270